=== PATIENT | male | born 1990 | race Asian ===

== ENCOUNTER 2017-11-04 00:34 | Emergency (ER) | payer OTHER ==
--- NOTE | 2017-11-04 01:13 | EDPHYS ---
Physician Documentation [facility] Name: Valentin Park Age: 27 yrs Sex: Male : 1990 Arrival Date: 11/04/2017 Time: 00:39 Bed 30 Private MD: Saeid Schmidt H ED Physician Charly Griffin HPI: 11/04 00:56 This 27 yrs old Male presents to ER via Ambulatory with complaints of Allergic rn Reaction. 00:56 The patient presents with rash. rn 00:57 Onset: The symptoms/episode began/occurred yesterday. Possible causes: The patient has rn no known obvious cause for the symptoms. Severity of symptoms: At their worst the symptoms were mild in the emergency department the symptoms are unchanged. The patient has experienced similar episodes in the past. Reports itching and rash to body, diffuse, has happened multiple times in past, no trouble breathing, no swelling, + hives. Allergic to shellfish but denies recent exposure. No other changes, no new medication. . Historical: - Allergies: 00:54 SHELLFISH; lp1 - Home Meds: 00:54 Atarax Oral 25 mg every 8 hours [Active]; lp1 - PMHx: 00:54 None; lp1 - PSHx: 00:54 None; lp1 - Immunization history:: Adult Immunizations up to date. - Social history:: Smoking status: Patient/guardian denies using tobacco. - Family history:: not pertinent. - Hospitalizations: : No recent hospitalization is reported. ROS: 00:57 Constitutional: Negative for fever, chills, and weight loss, Eyes: Negative for injury, rn pain, redness, and discharge, Neck: Negative for injury, pain, and swelling, Cardiovascular: Negative for chest pain, palpitations, and edema, Respiratory: Negative for shortness of breath, cough, wheezing, and pleuritic chest pain, Abdomen/GI: Negative for abdominal pain, nausea, vomiting, diarrhea, and constipation, Back: Negative for injury and pain, MS/Extremity: Negative for injury and deformity, Skin: + hives Neuro: Negative for headache, weakness, numbness, tingling, and seizure. Exam: 00:57 Constitutional: This is a well developed, well nourished patient who is awake, alert, rn and in no acute distress. Head/Face: Normocephalic, atraumatic. Eyes: Pupils equal round and reactive to light, extra-ocular motions intact. Lids and lashes normal. Conjunctiva and sclera are non-icteric and not injected. Cornea within normal limits. Periorbital areas with no swelling, redness, or edema. ENT: No oral lesions, normal voice Skin: Diffuse urticaria and excoriations, no skin sloughing. Vital Signs: 00:54 BP 123 / 102; Pulse 83; Resp 16; Temp 98.2(O); Pulse Ox 100% on R/A; Weight 56.7 kg; lp1 Height 5 ft. 7 in. (170.18 cm); 01:13 BP 128 / 86; Pulse 77; Resp 18; Pulse Ox 100% ; kb1 00:54 Body Mass Index 19.58 (56.70 kg, 170.18 cm) lp1 MDM: 00:49 Patient medically screened. rn 00:57 Differential diagnosis: urticaria. Data reviewed: vital signs, nurses notes, and as a rn result, I will discharge patient. Counseling: I had a detailed discussion with the patient and/or guardian regarding: the historical points, exam findings, and any diagnostic results supporting the discharge/admit diagnosis, the need for outpatient follow up, to return to the emergency department if symptoms worsen or persist or if there are any questions or concerns that arise at home. 01:13 Special discussion: I discussed with the patient/guardian in detail that at this point rn there is no indication for admission to the hospital. It is understood, however, that if the symptoms persist or worsen the patient needs to return immediately for re-evaluation. Administered Medications: 01:16 Drug: SOLU-Medrol 125 mg Route: IM; Site: right gluteus; kb1 01:41 Follow up: Response: No adverse reaction kb1 01:17 Drug: Benadryl 50 mg Route: PO; kb1 01:41 Follow up: Response: No adverse reaction kb1 Disposition: 11/04/17 01:13 Discharged to Home. Impression: Urticaria. - Condition is Stable. - Discharge Instructions: Hives. - Prescriptions for Hydroxyzine HCl 50 mg Oral Tablet - take 1 tablet by ORAL route every 8 hours As needed; 20 tablet. Prednisone 20 mg Oral Tablet - take 3 tablet by ORAL route once daily for 5 days; 15 tablet. - Medication Reconciliation Form, Thank You Letter, Antibiotic Education, Prescription Opioid Use form. - Follow up: Private Physician; When: As needed; Reason: Recheck today's complaints, Re-evaluation by your physician. - Problem is an ongoing problem. - Symptoms have improved. Signatures: Charly Griffin MD MD rn Shana Martinez, RN RN lp1 Sofy Busby RN RN kb1
--- NOTE | 2017-11-04 01:13 | ER ---
Nurse's Notes [facility] Name: Valentin Park Age: 27 yrs Sex: Male : 1990 Arrival Date: 11/04/2017 Time: 00:39 Bed 30 Private MD: Saeid Schmidt H Diagnosis: Urticaria Presentation: 11/04 00:51 Presenting complaint: Patient states: Hives, itching to generalized body that began lp1 this afternoon, worsening; States this has happened every now and then; Only known allergy is to shellfish; Denies any shortness of breath, N/V. Transition of care: patient was not received from another setting of care. Onset: The symptoms/episode began/occurred today. Anaphylaxis evaluation, no signs or symptoms of anaphylaxis were noted. Onset of symptoms was November 03, 2017. Care prior to arrival: Medication(s) given: Atarax 25mg PO at 0000. 00:51 Method Of Arrival: Ambulatory lp1 00:51 Acuity: NANCY 4 lp1 Triage Assessment: 00:55 General: Appears in no apparent distress. Behavior is appropriate for age. Pain: Denies lp1 pain. Respiratory: Airway is patent Respiratory effort is even, unlabored. Derm: Rash noted that is red, urticaria. Historical: - Allergies: 00:54 SHELLFISH; lp1 - Home Meds: 00:54 Atarax Oral 25 mg every 8 hours [Active]; lp1 - PMHx: 00:54 None; lp1 - PSHx: 00:54 None; lp1 - Immunization history:: Adult Immunizations up to date. - Social history:: Smoking status: Patient/guardian denies using tobacco. - Family history:: not pertinent. - Hospitalizations: : No recent hospitalization is reported. Screenin:55 Abuse screen: Denies threats or abuse. Denies injuries from another. Nutritional lp1 screening: No deficits noted. Tuberculosis screening: No symptoms or risk factors identified. Fall Risk None identified. Assessment: 01:13 General: Appears in no apparent distress. Behavior is calm, cooperative. Pain: Denies kb1 pain. Neuro: Level of Consciousness is awake, alert, obeys commands, Oriented to person, place, time, situation. Cardiovascular: Patient's skin is warm and dry. Respiratory: Airway is patent Respiratory effort is even, unlabored, Breath sounds are clear. GI: No signs and/or symptoms were reported involving the gastrointestinal system. Derm: Rash noted that is red, raised, Reports itching. Vital Signs: 00:54 BP 123 / 102; Pulse 83; Resp 16; Temp 98.2(O); Pulse Ox 100% on R/A; Weight 56.7 kg; lp1 Height 5 ft. 7 in. (170.18 cm); 01:13 BP 128 / 86; Pulse 77; Resp 18; Pulse Ox 100% ; kb1 00:54 Body Mass Index 19.58 (56.70 kg, 170.18 cm) lp1 ED Course: 00:39 Patient arrived in ED. am2 00:40 Saeid Schmidt DO is Private Physician. am2 00:49 Charly Griffin MD is Attending Physician. rn 00:54 Triage completed. lp1 00:54 Arm band placed on right wrist. lp1 01:09 Sofy Busby RN is Primary Nurse. kb1 01:13 Patient has correct armband on for positive identification. Bed in low position. Call kb1 light in reach. Pulse ox on. NIBP on. 01:13 No provider procedures requiring assistance completed. Patient did not have IV access kb1 during this emergency room visit. Administered Medications: 01:16 Drug: SOLU-Medrol 125 mg Route: IM; Site: right gluteus; kb1 01:41 Follow up: Response: No adverse reaction kb1 01:17 Drug: Benadryl 50 mg Route: PO; kb1 01:41 Follow up: Response: No adverse reaction kb1 Outcome: 01:13 Discharge ordered by . rn 01:42 Discharged to home ambulatory. kb1 01:42 Condition: stable 01:42 Condition: stable 01:42 Discharge instructions given to patient, Instructed on discharge instructions, medication usage, Demonstrated understanding of instructions, medications, Prescriptions given X 2. 01:43 Patient left the ED. kb1 Signatures: Charly Griffin MD MD rn Pena, Laura, RN RN lp1 Karen Carter 2 Sofy Busby RN RN kb1
[2017-11-04] MEDS ORDERED: DIPHENHYDRAMINE 25 MG TAB/CAP ONE (01:23)
[2017-11-04] MEDS ORDERED: METHYLPREDNISOLONE 125 MG INJ ONE (01:23)
== END 2017-11-04 01:43 | disposition home or self-care (01) ==
LOC: ER 00:34
DX: L50.9 Urticaria, unspecified (principal); Z91.013 Allergy to seafood
CPT/HCPCS: 96372; 99283; J2930